=== PATIENT | female | born 1980 | race American Indian/Alaskan Native ===

== ENCOUNTER 2018-10-11 06:38 | Day surgery (SDC) | payer BC ==
[2018-10-11] MEDS ORDERED: Scopolamine 1.5 MG Transdermal Patch TRDERM PRN (07:32)
--- NOTE | 2018-10-11 07:34 | PCM.PREANE ---
Preanesthetic Assessment - Anesthesia/Transfusion/Family Hx Anesthesia History: Prior Anesthesia Reaction Other Type of Anesthesia Reaction Comment: awareness during D&C Family History of Anesthesia Reaction: No Transfusion History: Prior Transfusion Without Reaction Intubation History: Unknown - Review of Systems General: No Symptoms Pulmonary: No Symptoms Cardiovascular: No Symptoms Gastrointestinal: No Symptoms Neurological: No Symptoms Other: Reports: None - Physical Assessment O2 Sat by Pulse Oximetry: 95 Respiratory Rate: 16 Vital Signs: Last Vital Signs Temp 36.8 C 10/11/18 06:59 Pulse 90 10/11/18 06:59 Resp 16 10/11/18 06:59 BP 157/99 H 10/11/18 06:59 Pulse Ox 95 10/11/18 06:59 Height: 1.64 m Weight: 83.461 kg ASA Class: 2 Mental Status: Alert & Oriented x3 Airway Class: Mallampati = 2 Dentition: Reports: Normal Dentition Thyro-Mental Finger Breadths: 3 Mouth Opening Finger Breadths: 3 ROM/Head Extension: Full Lungs: Clear to Auscultation, Normal Respiratory Effort Cardiovascular: Regular Rate, Regular Rhythm - Lab Values: Laboratory Last Values WBC 6.78 K/uL (4.0-11.0) 10/08/18 16:14 RBC 4.29 M/uL (4.30-5.90) L 10/08/18 16:14 Hgb 14.0 g/dL (12.0-16.0) 10/08/18 16:14 Hct 39.6 % (36.0-46.0) 10/08/18 16:14 MCV 92.3 fL (80.0-98.0) 10/08/18 16:14 MCH 32.6 pg (27.0-32.0) H 10/08/18 16:14 MCHC 35.4 g/dL (31.0-37.0) 10/08/18 16:14 RDW Std Deviation 41.7 fl (28.0-62.0) 10/08/18 16:14 RDW Coeff of [place] 12 % (11.0-15.0) 10/08/18 16:14 Plt Count 249 K/uL (150-400) 10/08/18 16:14 MPV 10.60 fL (7.40-12.00) 10/08/18 16:14 Nucleated RBC % 0.0 /100WBC 10/08/18 16:14 Nucleated RBCs # 0 K/uL 10/08/18 16:14 HCG, Quant < 1.0 mIU/mL 10/08/18 16:14 Blood Type A POSITIVE 10/08/18 16:14 Antibody Screen NEGATIVE 10/08/18 16:14 - Allergies Allergies/Adverse Reactions: Allergies Allergy/AdvReac Type Severity Reaction Status Date / Time adhesive tape Allergy Blisters Verified 10/08/18 11:44 - Blood Blood Available: No - Anesthesia Plan Pre-Op Medication Ordered: None - Acknowledgements Anesthesia Type Planned: General Anesthesia Pt an Appropriate Candidate for the Planned Anesthesia: Yes Alternatives and Risks of Anesthesia Discussed w Pt/Guardian: Yes Pt/Guardian Understands and Agrees with Anesthesia Plan: Yes PreAnesthesia Questionnaire HEENT History: Reports: Other (See Below) Other HEENT History: wears glasses/contacts Cardiovascular History: Reports: Hypertension Respiratory History: Reports: None Gastrointestinal History: Genitourinary History: Reports: None 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: Musculoskeletal History: Reports: Fracture Other Musculoskeletal History: hx of fx toe Neurological History: Reports: Other (See Below) Other Neuro History: had Meningitis at age 19 Psychiatric History: Reports: Anxiety Endocrine/Metabolic History: Reports: None Hematologic History: Reports: None, Blood Transfusion(s) Immunologic History: Reports: None Oncologic (Cancer) History: Reports: None Dermatologic History: Reports: None - Past Surgical History Head Surgeries/Procedures: Reports: None HEENT Surgical History: Reports: Tonsillectomy Cardiovascular Surgical History: Reports: None Respiratory Surgical History: Reports: None GI Surgical History: Reports: None Female Surgical History: Reports: D&C, LEEP Endocrine Surgical History: Reports: None Neurological Surgical History: Reports: None Musculoskeletal Surgical History: Reports: None Oncologic Surgical History: Reports: None Dermatological Surgical History: Reports: None - SUBSTANCE USE Smoking Status *Q: Never Smoker Recreational Drug Use History: No - HOME MEDS Home Medications: Home Meds Fish Oil/[place]-3 Fatty Acids [Fish Oil 1,000 MG] 1 gm PO DAILY 10/08/18 [History ] Folic Acid 0.4 mg PO DAILY 10/08/18 [History] Labetalol [Normodyne] 100 mg PO BID 10/08/18 [History] Multivitamin [Daily Multiple Vitamin] 1 tab PO DAILY 10/08/18 [History]
[2018-10-11] MEDS ORDERED: fentaNYL 100 MCG/2 ML SDV ONE ×2 (07:38→08:18)
[2018-10-11] MEDS ORDERED: Midazolam 1 MG/ML 2 ML SDV ONE (07:38)
[2018-10-11] MEDS ORDERED: Propofol 200 MG/20 ML SDV ONE ×2 (07:38→07:41)
[2018-10-11] MEDS ORDERED: Ondansetron 4 MG/2 ML SDV ONE (07:38)
[2018-10-11] MEDS ORDERED: Methylene Blue 50 MG/10 ML Ampule ONE (07:43)
[2018-10-11] MEDS ORDERED: Bupivacaine 0.25% 10 ML SDV ONE (07:43)
[2018-10-11] MEDS ORDERED: Sugammadex Sodium 200 MG/2 ML VIAL ONE (07:44)
[2018-10-11] MEDS ORDERED: Glycopyrrolate 0.2 MG/ML SDV ONE (08:03)
[2018-10-11] MEDS ORDERED: Dexamethasone 4 MG/ML 5 ML MDV ONE (08:38)
[2018-10-11] MEDS ORDERED: Morphine 10 MG/ML Syringe ONE (08:47)
--- NOTE | 2018-10-11 09:32 | PCM.OPNOTE ---
- General Post-Op/Procedure Note Date of Surgery/Procedure: 10/11/18 Operative Procedure(s): Operative laparoscopy, excision of left paratubal cyst, left ovarian cystectomy, chromotubation Findings: Left paratubal cyst (approx. 30cc), left ovarian cyst, no evidence of endometriosis, patent tubes bilaterally Pre Op Diagnosis: Left ovarian cyst, abdominal pain Post-Op Diagnosis: Left paratubal cyst, left ovarian cyst Anesthesia Technique: General ET Tube Primary Surgeon: Arabella Jay Secondary Surgeon: Eva Ayala ([id number]) Anesthesia Provider: Monica Portillo Pathology: Left paratubal cyst, left ovarian cyst wall Fluid Replacement, Intraop: 1,100 EBL in mLs: 10 Complications: None known Condition: Good
[2018-10-11] MEDS: fentaNYL 100 MCG/2 ML SDV IVPUSH PRN ×4 (09:48→10:12)
--- NOTE | 2018-10-11 10:31 | PCM.POSTAN ---
POST ANESTHESIA ASSESSMENT - MENTAL STATUS Mental Status: Alert, Oriented - RESPIRATORY Respiratory Status: Respiratory Rate WNL, Airway Patent, O2 Saturation Stable - CARDIOVASCULAR CV Status: Pulse Rate WNL, Blood Pressure Stable - GASTROINTESTINAL GI Status: No Symptoms - PAIN Pain Score: 6 - POST OP HYDRATION Hydration Status: Adequate & Stable - OBSERVATIONS Free Text/Narrative:: no anesthesia problems
[2018-10-11] MEDS ORDERED: Acetaminophen/oxyCODONE 325-5 MG Tab PO PRN (11:17)
[2018-10-11] MEDS ORDERED: Acetaminophen/oxyCODONE 325-5 MG Tab ONE (11:21)
[2018-10-11 13:57] VITALS: BP 122/76
--- NOTE | 2018-10-12 08:21 | OR ---
SURGEON: Arabella Jay M.D. DATE OF PROCEDURE: 10/11/2018 PREOPERATIVE DIAGNOSES: 1. Pelvic pain. 2. Left ovarian cyst. POSTOPERATIVE DIAGNOSES: 1. Pelvic pain. 2. Left ovarian cyst. 3. Torsed left paratubal cyst. HEALTH SERVICES ADMINISTRATOR: Eva Ayala MS-4. ANESTHESIA: General endotracheal. ESTIMATED BLOOD LOSS: 10 mL. FINDINGS: The uterus was retroverted, 8 week size. Both tubes were patent upon chromopertubation. 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 The left ovary contained a 3.5 cm simple cyst. There was another 3.5 cm simple cyst, which was paratubal with a pedunculated stalk, which was torsed approximately 5 times. However, there was good blood flow to the tube and to the cyst. There was no evidence of endometriosis. There were no pelvic adhesions. COMPLICATIONS: None known. DISPOSITION: Stable to recovery. BRIEF HISTORY: This is a 38-year-old female. She has worsening left lower quadrant pain. She had known ovarian cyst that we have been following for greater than 6 weeks. It has persisted and her pain has worsened. Additionally, there is a second cyst that has developed, and she desires to proceed with left ovarian cystectomy with evaluation for endometriosis and other etiology for her pelvic pain. Additionally, she would like an assessment of her tubes for patency. Surgical risks were discussed including bleeding, infection, injury to bowel, bladder, blood vessels, ureters, or other organs, risk of thromboembolic event, risk of anesthesia. Understanding all these risks, she does desire to proceed. DESCRIPTION OF PROCEDURE: With the patient in dorsolithotomy position under adequate general endotracheal anesthesia, the abdomen was prepped with chlorhexidine. The perineum and vagina were prepped with Betadine and draped in usual fashion for laparoscopic surgery. SCDs were in place, and the bladder had been drained. An appropriate time-out was held. Bimanual examination revealed a retroverted 8 week-sized uterus. Speculum was placed in the vagina. The posterior cervix was grasped with an Allis clamp. The uterus sounded to 8 cm. It was dilated to a 7 mm Hegar dilator. The ZUMI uterine manipulator was placed into the uterine fundus, and the balloon was filled with 3 mL of air. 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 Attention was then turned abdominally, where 3 mL of 0.25% Marcaine was injected inferior to the umbilicus. A vertical 5-mm incision was made with a scalpel. The anterior abdominal wall was elevated. Veress needle was inserted. 4 mm of pressure was the opening measurement, and the CO2 was then insufflated to develop an adequate pneumoperitoneum of 15 mmHg. A 5-mm port was placed inferior to the umbilicus. Two additional ports were placed 2 cm medial and cephalad from the anterior superior iliac spine on the right and the left. Careful inspection was performed of the anterior and posterior cul-de-sac, the ovarian fossa on the right and left, ovaries and tubes, and findings are as noted above. There was no evidence of endometriosis. The right tube and ovary appeared normal. The left paratubal cyst was torsed in the posterior cul-de-sac. In order to carefully delineate the tube, I did proceed with chromopertubation, which identified a plane between the cyst and the tube, which I felt I was able to easily separate between the tube and the cyst. The cyst was in the mesosalpinx, which was opened with the Harmonic Timothy, and then I was able to rupture the cyst and cut across the base of the cyst and send for pathology. The base was hemostatic. The tube was intact. Attention was then turned to the left ovary, where the surface of the ovary was opened with the Harmonic Timothy, and the clear fluid was noted. The smooth cyst wall was identified and grasped with a [place] grasper, and I carefully turned the [place] grasper repetitively, which easily peeled the cyst wall out of the ovary. The base of the cyst was then cauterized using a Kleppinger bipolar cautery. The pelvis was copiously irrigated. The ovary and tube were hemostatic, and the pelvis was inspected under high and low pressure and was hemostatic. Therefore, the instruments were removed from the pelvis, and the abdomen was desufflated. The ports were removed. The incision sites were closed with a subcuticular suture of 3-0 Monocryl. The uterine manipulator was removed. Final sponge, needle, and instrument counts were reported as correct. There were no known complications. The patient was transferred to recovery in good condition. RO / MAIDA /[id number]
== END 2018-10-11 13:00 ==
LOC: MW.SDS 06:38
PROVIDERS: ATTEND Obstetrics & Gynecology
DX: N83.8 Other noninflammatory disorders of ovary, fallopian tube and broad ligament (principal); N83.02 Follicular cyst of left ovary; I10 Essential (primary) hypertension; F41.9 Anxiety disorder, unspecified; Z87.891 Personal history of nicotine dependence; Z79.899 Other long term (current) drug therapy; Z91.048 Other nonmedicinal substance allergy status
CPT/HCPCS: 36415; 58662; 84702; 85027; 86850; 86900; 86901; A9270; J0131; J1100; J2001; J2250; J2270; J2405; J2704; J3010; J3490; 88305